=== PATIENT | male | born 1945 | race Hispanic/Latino ===

== ENCOUNTER 2016-09-29 15:19 | Emergency (ER) | payer MEDICARE, OTHER ==
--- NOTE | 2016-09-29 15:45 | ED PDOC ---
Arrival/HPI - General Chief Complaint: Psychiatric Evaluation Time Seen by Provider: 09/29/16 15:24 Historian: Patient - History of Present Illness Narrative History of Present Illness (Text): 09/29/16 15:42 70yo male with PMHx of hypertension and BPH BIBA for psych evaluation. Patient states he was sent to ED because he was caught taking soda from the refrigerator. he states they stopped giving them soda with they lunch, so he was tempted when he saw a can of soda. states he loves soda and coffee. He denies SI/HI, hallucination, any somatic complaint. Past Medical History - Provider Review Nursing Documentation Reviewed: Yes - Infectious Disease Hx of Infectious Diseases: None - Cardiac Hx Hypertension: Yes - Genitourinary/Gynecological Other/Comment: bph - Psychiatric Hx Bipolar Disorder: Yes Hx Depression: Yes Hx Substance Use: No Family/Social History - Physician Review Nursing Documentation Reviewed: Yes Family/Social History: Unknown Family HX Smoking Status: Unknown If Ever Smoked Hx Alcohol Use: No Hx Substance Use: No Allergies/Home Meds Allergies/Adverse Reactions: Allergies No Known Allergies Allergy (Verified 09/29/16 15:34) Home Medications: Home Meds Medication Instructions Recorded Confirmed Acetaminophen [Tylenol 325mg tab] 2 tab PO PRN PRN 09/29/16 09/29/16 Divalproex [Depakote] 500 mg PO BID 09/29/16 09/29/16 Mirtazapine [Remeron] 15 mg PO HS 09/29/16 09/29/16 Tamsulosin [Flomax] 0.4 mg PO BID 09/29/16 09/29/16 amLODIPine [Norvasc] 10 mg PO DAILY 09/29/16 09/29/16 Review of Systems - Physician Review All systems were reviewed & negative as marked: Yes - Review of Systems Constitutional: Normal Eyes: Normal ENT: Normal Respiratory: Normal Cardiovascular: Normal Gastrointestinal: Normal Genitourinary Male: Normal Musculoskeletal: Normal Skin: Normal Neurological: Normal Endocrine: Normal Hemo/Lymphatic: Normal Psychiatric: Other (Psych evaluation) Physical Exam Vital Signs Reviewed: Yes Vital Signs Temp Pulse Resp BP Pulse Ox 09/30/16 01:41 68 18 116/66 96 09/29/16 20:46 86 16 104/65 100 09/29/16 17:20 84 17 129/69 100 09/29/16 15:20 98.1 F 64 17 145/101 H 98 Temperature: Afebrile Blood Pressure: Normal Pulse: Regular Respiratory Rate: Normal Appearance: Positive for: Well-Appearing, Non-Toxic, Comfortable Pain Distress: None Mental Status: Positive for: Alert and Oriented X 3 - Systems Exam Head: Present: Atraumatic, Normocephalic Pupils: Present: PERRL Extroacular Muscles: Present: EOMI Conjunctiva: Present: Normal Mouth: Present: Moist Mucous Membranes Neck: Present: Normal Range of Motion Respiratory/Chest: Present: Clear to Auscultation, Good Air Exchange. No: Respiratory Distress, Accessory Muscle Use Cardiovascular: Present: Regular Rate and Rhythm, Normal S1, S2. No: Murmurs Abdomen: Present: Normal Bowel Sounds. No: Tenderness, Distention, Peritoneal Signs Back: Present: Normal Inspection Upper Extremity: Present: Normal Inspection. No: Cyanosis, Edema Lower Extremity: Present: Normal Inspection, Edema (3+ nonpitting b/l edema). No: CALF TENDERNESS Neurological: Present: GCS=15, CN II-XII Intact, Speech Normal Skin: Present: Warm, Dry, Normal Color. No: Rashes Psychiatric: Present: Alert, Oriented x 3, Normal Insight, Normal Concentration Medical Decision Making ED Course and Treatment: 09/30/16 02:08 Pt presented for stated history. He was treated for UTI with Cipro and was medically cleared for psych evaluation. He was seen in ED by HÉCTOR Berry. She DC with Dr. Deluca and DC pt back to the [facility]. His BP improved in ED. - Lab Interpretations Lab Results: 09/29/16 15:50 09/29/16 15:50 Lab Results 09/29/16 19:45: Urine Opiates Screen Negative, Urine Methadone Screen Negative, Ur Barbiturates Screen Negative, Ur Phencyclidine Scrn Negative, Ur Amphetamines Screen Negative, U Benzodiazepines Scrn Negative, U Oth Cocaine Metabols Negative, U Cannabinoids Screen Negative 09/29/16 19:14: Urine Color Yellow, Urine Appearance Cloudy, Urine pH 6.0, Ur Specific [place] 1.020, Urine Protein Trace H, Urine Glucose (UA) Negative, Urine Ketones Negative, Urine Blood Moderate H, Urine Nitrate Positive H, Urine Bilirubin Negative, Urine Urobilinogen 1.0 H, Ur Leukocyte Esterase Large H, Urine RBC 2 - 5, Urine WBC Tntc, Ur Epithelial Cells 0 - 2, Urine Bacteria Many 09/29/16 15:50: Alcohol, Quantitative < 10 09/29/16 15:50: Salicylates < 1 L, Acetaminophen < 10.0 L 09/29/16 15:50: Sodium 140, Potassium 4.0, Chloride 105, Carbon Dioxide 28, Anion Gap 11, BUN 41 H, Creatinine 1.4, Est GFR ( Amer) > 60, Est GFR ( Non-Af Amer) 50, Random Glucose 76, Calcium 8.9, Total Bilirubin 0.9, AST 31, ALT 29, Alkaline Phosphatase 62, Total Protein 6.8, Albumin 3.4, Globulin 3.3, Albumin/Globulin Ratio 1.0 L 09/29/16 15:50: WBC 6.0, RBC 4.54, Hgb 13.5 L, Hct 39.9 L, MCV 87.9, MCH 29.7, MCHC 33.8, RDW 13.9, Plt Count 125, MPV 12.6 H, Gran % 64.3, Lymph % (Auto) 21.2 L, [place] % (Auto) 10.4 H, Eos % (Auto) 3.8, Baso % (Auto) 0.3, Gran # 3.88, Lymph # 1.3, [place] # 0.6, Eos # 0.2, Baso # 0.02 - Medication Orders Current Medication Orders: Discontinued Medications Ciprofloxacin (Cipro) 500 mg PO ONCE STA PRN Reason: Protocol Stop: 09/29/16 19:43 Last Admin: 09/29/16 20:45 Dose: 500 mg Disposition/Present on Arrival - Present on Arrival Any Indicators Present on Arrival: No History of DVT/PE: No History of Uncontrolled Diabetes: No Urinary Catheter: No History of Decub. Ulcer: No History Surgical Site Infection Following: None - Disposition Have Diagnosis and Disposition been Completed?: Yes Diagnosis: UTI (urinary tract infection), Behavior concern in adult Disposition: HOME/ ROUTINE Disposition Time: 20:30 Patient Plan: Discharge Condition: STABLE Discharge Instructions (ExitCare): Urinary Tract Infection in Men (ED) Additional Instructions: Follow up with your Doctor Return to ED for any new or worsening symptoms Prescriptions: Ciprofloxacin [Cipro] 500 mg PO BID #14 tab Referrals: Joseluis Redd MD [Primary Care Provider] - Follow up with primary
[2016-09-29 15:53] VITALS: TEMP 98.1
[2016-09-29 15:58] LABS: ADD MANUAL DIFF? NO
[2016-09-29 16:17] LABS: BASO # 0.02 K/mm3 (0.0-2.0); BASO % 0.3 % (0.0-3.0); EOS # 0.2 (0.0-0.7); EOS % 3.8 % (1.5-5.0); GRAN # 3.88 (1.4-6.5); GRAN % 64.3 % (50.0-68.0); HEMATOCRIT 39.9 % (42.0-52.0); LYMPH # 1.3 (1.2-3.4); LYMPH % 21.2 % (22.0-35.0); MEAN CELL VOLUME 87.9 fL (80.0-105.0); MEAN CORPUSCULAR HEMOGLOBIN 29.7 pg (25.0-35.0); MEAN CORPUSCULAR HGB CONC 33.8 g/dl (31.0-37.0); MEAN PLATELET VOLUME 12.6 fl (7.0-11.0); MONO # 0.6 (0.1-0.6); MONO % 10.4 % (1.0-6.0); PLATELET COUNT 125 10^3/uL (120.0-450.0); RED CELL DISTRIBUTION WIDTH 13.9 % (11.5-14.5)
[2016-09-29 16:19] LABS: ALKALINE PHOSPHATASE 62 U/L (38-133); ALT/SGPT 29 U/L (7-56); AST/SGOT 31 U/L (15-59); BILIRUBIN,TOTAL 0.9 mg/dL (0.2-1.3); BLOOD UREA NITROGEN 41 mg/dL (7-21); CALCIUM 8.9 mg/dL (8.4-10.5); CARBON DIOXIDE 28 mmol/L (21-33); CHLORIDE 105 mmol/L (98-107); GFR AFRICAN-AMERICAN > 60; GLUCOSE,RANDOM 76 mg/dL (70-110); SODIUM 140 mmol/L (132-148); TOTAL PROTEIN 6.8 g/dL (5.8-8.3)
[2016-09-29 19:32] LABS: URINE BILIRUBIN NEGATIVE (NEGATIVE); URINE BLOOD MODERATE (NEGATIVE); URINE GLUCOSE (UA) NEGATIVE (NEGATIVE); URINE KETONE NEGATIVE (NEGATIVE); URINE LEUKOCYTE ESTERASE LARGE Leu/uL (NEGATIVE); URINE PROTEIN TRACE mg/dL (<30 mg/dL)
[2016-09-29 19:38] LABS: URINE APPEARANCE CLOUDY (CLEAR); URINE COLOR YELLOW (YELLOW)
[2016-09-29 19:41] LABS: URINE BACTERIA MANY (NEG); URINE WBC TNTC /hpf (0-6)
[2016-09-29 19:42] LABS: URINE EPITHELIAL CELLS 0 - 2 /hpf (0-5)
[2016-09-30 01:42] VITALS: BP 116/66; PULSE 68; RESP 18; O2SAT 96
--- NOTE | 2016-09-30 10:13 | CARD ---
APPROVED REPORT EKG Measurement Heart [id number] <Conclusion> Sinus rhythm PVC's, 1 couplet
== END 2016-09-30 01:54 | disposition home or self-care (01) ==
LOC: MERGE 15:19 → ED 15:19
DX: N39.0 Urinary tract infection, site not specified (principal); R46.89 Other symptoms and signs involving appearance and behavior
CPT/HCPCS: 80053; 81001; 85025; 87086; 90791; 93005; 99283; G0480